=== PATIENT | female | born 1985 | race Caucasian/White ===

== ENCOUNTER 2020-07-19 15:53 | Emergency (ER) | payer MEDICAID ==
[~2020-07-19] VITALS: Ht 149.9 cm; Wt 59.0 kg
[2020-07-19 16:02] VITALS: BP 136/90
[2020-07-19] MEDS ORDERED: FLONASE 0.05%50 MCG NARES (16:19)
== END 2020-07-19 16:27 | disposition still patient (30) ==
LOC: M.ERS 15:53
DX: T17.1XXA Foreign body in nostril, initial encounter (principal); X58.XXXA Exposure to other specified factors, initial encounter; Y93.89 Activity, other specified; Y92.89 Other specified places as the place of occurrence of the external cause; Y99.8 Other external cause status